=== PATIENT | male | born 2005 | race Caucasian/White ===

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

== ENCOUNTER 2024-06-22 07:15 | Outpatient (CLI) | payer OTHER | END 2024-06-22 07:30 | disposition home or self-care (01) | LOC: LAB.N 07:15 | PROVIDERS: ATTEND Family Medicine | DX: R19.4 Change in bowel habit (principal) | CPT/HCPCS: 83993; 87045; 87046; 87329; 87427; 87493 ==